=== PATIENT | male | born 1985 | race Caucasian/White ===

== ENCOUNTER → 2021-11-17 15:19 | Outpatient (CLI) | payer SELFPAY ==
[2021-11-17 15:53] LABS: Add Manual Diff / Slide Review NO; Basophils Absolute Auto 0 /uL (0-100); Basophils Percent Auto 0.7 % (0-2); Eosinophils Absolute Auto 100 /uL (0-450); Eosinophils Percent Auto 1.6 % (2-4); Hematocrit 42.4 % (41-53); Hemoglobin 14.7 g/dL (13.5-17.5); Lymphocytes Absolute Auto 1100 /uL (1100-4500); Lymphocytes Percent Auto 16.6 % (25-40); Mean Corpuscular HGB Conc 34.8 % (30-36); Mean Corpuscular Hemoglobin 32.3 PG (26-34); Mean Corpuscular Volume 92.8 fL (80-100); Monocytes Absolute Auto 500 /uL (0-900); Monocytes Percent Auto 7.4 % (3-14); Neutrophils Absolute Auto 4900 /uL (1500-7000); Neutrophils Percent Auto 73.7 % (50-75); Platelet Count 211 X10^3/uL (150-400); Red Blood Cell Count 4.56 X10^6/uL (4.5-5.9); Red Cell Distribution Width 13.4 % (11.6-14.8); White Blood Cell Count 6.6 X10^3/uL (4.5-11.0)
[2021-11-17 16:50] LABS: Alanine Aminotransferase 39 IU/L (<50); Albumin 4.6 g/dL (3.5-5.0); Albumin Globulin Ratio 1.6 (1.0-2.8); Alkaline Phosphatase 50 U/L (38-126); Aspartate Aminotransferase 53 IU/L (17-59); Bilirubin Total 0.3 mg/dL (0.2-1.3); Blood Urea Nitrogen 30 mg/dL (9-20); Calcium 9.6 mg/dL (8.4-10.2); Carbon Dioxide 30 mmol/L (22-32); Chloride 105 mmol/L (98-107); Cholesterol 191 mg/dL (140-199); Globulin 2.8 g/dL (1.7-4.1); Glucose 96 mg/dL (70-100); HDL Cholesterol 86 mg/dL (40-60); LDL Cholesterol Calculated 82 mg/dL (<100); Potassium 4.6 mmol/L (3.4-5.1); Sodium 140 mmol/L (137-145); Total Protein 7.4 g/dL (6.3-8.2); Triglycerides 116 mg/dL (35-150)
[2021-11-17 17:02] LABS: Free T3, Triiodothyronine Free 3.94 pg/mL (2.77-5.27); Free T4, Direct Thyroxine 0.87 ng/dL (0.78-2.19)
[2021-11-17 17:13] LABS: BUN Creatinine Ratio 20.7 (6-22); Estimated Glomerular Filt Rate 55.4 mL/min (>60); HEMOLYSIS 28 (0-50)
[2021-11-17 17:16] LABS: Thyroid Stimulating Hormone 1.86 uIU/mL (0.47-4.68)
[2021-11-17 17:22] LABS: Hepatitis B Surface Antigen NEGATIVE s/c (NEGATIVE)
[2021-11-17 17:38] LABS: HIV 1 & 2 Ab/Ag 4th Gen Combo NEGATIVE (NEGATIVE); Hep C Virus Ab w/Reflex Quant NEGATIVE s/c (NEGATIVE)
[2021-11-17 17:49] LABS: Urine N gonorrhoeae NOT DETECTED
[2021-11-17 17:51] LABS: Urine Chlamydia NOT DETECTED
[2021-11-18 08:17] LABS: RPR Screen Non Reactive (Non Reactive)
== END ==
PROVIDERS: Family Provider Physician Assistant; PCP Family Medicine; Referring Provider Family Medicine; Visit Provider Family Medicine
DX: F50.9 Eating disorder, unspecified (principal); Z11.3 Encounter for screening for infections with a predominantly sexual mode of transmission
CPT/HCPCS: 36415; 80053; 80061; 84439; 84443; 84481; 85025; 86592; 86803; 87340; 87389; 87491; 87591

== ENCOUNTER 2025-02-19 20:37 | Emergency (ER) | payer OTHER, SELFPAY ==
[2025-02-19 20:46] VITALS: BP 127/65; PULSE 94; RESP 18; TEMP 36.8; O2SAT 98; BMI 25.0
--- NOTE | 2025-02-19 20:53 | DI.RAD.S_ITS ---
PROCEDURE: XR FOOT LT MIN 3V INDICATIONS: stepped on glass, swelling pain TECHNIQUE: 3 views of the foot were acquired. COMPARISON: None. FINDINGS: Bones: No fractures or dislocations. No suspicious bony lesions. Soft tissues: No tibiotalar joint effusion. Achilles tendon appears normal. No radiopaque foreign body. IMPRESSION: No radiopaque foreign body. Dictated by: Reuben Figueredo M.D. on 02/19/2025 at 21:26 Approved by: Reuben Figueredo M.D. on 02/19/2025 at 21:26
[2025-02-19 22:43] VITALS: BP 107/67; PULSE 59; RESP 16; O2SAT 98
--- NOTE | 2025-02-19 22:45 | ED_ITS ---
HPI - Extremity Injury (Lower) General Chief Complaint: Extremity Injury, Lower Stated Complaint: possible glass in lt foot Time Seen by Provider: 02/19/25 22:45 Source: patient Mode of arrival: Ambulatory History of Present Illness HPI Narrative: 39-year-old male n past medical history of substance abuse, alcohol abuse, bipolar, comes into the ED from evaluation of possible glass and foot. He states that yesterday he stepped on a water bottle with his left foot states that he did pull out some glass yesterday states it is now swollen and painful unsure of tetanus vaccine status, he denies any other injuries or symptoms at this time. Related Data Home Medications Medication Instructions Recorded Confirmed lisdexamfetamine 50 mg capsule 50 mg PO QAM 08/29/24 08/29/24 (Vyvanse) Previous Rx's Medication Instructions Recorded finasteride 1 mg tablet 1 mg PO DAILY #90 tabs 01/26/22 trazodone 50 mg tablet 50 mg PO ONCE PM PRN for insomnia 02/07/24 #30 tabs naltrexone 50 mg tablet See Rx Instructions .Route 08/29/24 .COMPLEX #30 tabs sulfamethoxazole 800 1 tab PO BID 1 week #14 tabs 02/19/25 mg-trimethoprim 160 mg tablet (Bactrim DS) Allergies Allergy/AdvReac Type Severity Reaction Status Date / Time No Known Drug Allergies Allergy Verified 01/26/24 10:40 Review of Systems Review of Systems Narrative: General: Denies fever, chills, weight loss HEENT: Denies headache, eye drainage, eye irritation, head trauma, sore throat, voice change Cardiovascular: Denies any chest pain, palpitations, tachycardia Respiratory: Denies any shortness of breath, cough, wheeze, stridor GI/: Denies any abdominal pain, nausea, vomiting, diarrhea, bright red blood per rectum, melanotic stools, urinary frequency, urinary retention, dysuria, hematuria MSK: Positive left foot pain swollen Skin: Denies any rashes, lesions, discoloration Neuro: Denies any headache, lightheadedness, dizziness, fainting, weakness Psych: Denies SI/HI Patient History Medical History (Updated 02/19/25 @ 22:55 by Dante Corrigan DO) Unspecified mood [affective] disorder Anxiety disorder, unspecified Alcohol use disorder, severe, dependence Fracture of right forearm Insomnia Substance abuse Alcoholism Bipolar disorder Eating disorder Exam Narrative Exam Narrative: General: Cooperative, well-developed, not in acute distress HEENT: Normocephalic, atraumatic, PERRLA, normal sclera, eyelids normal Neck: Active full range of motion, atraumatic Chest: Normal to inspection, negative crepitus, no overlying erythema ecchymosis Respiratory: Normal respiratory effort, not in acute respiratory distress, clear to auscultation bilaterally negative cough, wheeze, tachypnea, rhonchi, rales Cardiology: Regular rate rhythm negative gallop, murmur, rubs GI/: No tenderness to palpation, soft, non rigid, normal to inspection, exam deferred MSK: Full active range of motion in all 4 extremities, atraumatic, no tenderness to palpation of any bony prominences Skin: There is a 1 cm laceration noted to the plantar aspect of the left foot, no foreign body noted, not actively bleeding, no streaking no abscess Neuro: Alert awake oriented x3, moves all 4 extremities spontaneously, cranial nerves intact, able to answer all questions appropriately follows commands appropriately Psych: Cooperative, negative suicidal or homicidal ideations Initial Vital Signs Initial Vital Signs: Vital Signs Temperature 98.2 F 02/19/25 20:46 Pulse Rate 94 H 02/19/25 20:46 Respiratory Rate 18 02/19/25 20:46 Blood Pressure 127/65 02/19/25 20:46 Pulse Oximetry 98 02/19/25 20:46 Oxygen Delivery Method Room Air 02/19/25 20:46 Course Orders Ordered: ED Orders 02/19/25 20:53 XR foot LT min 3V Stat Vital Signs Vital signs: Vital Signs - 8 hr 02/19/25 20:46 Temperature 98.2 F Pulse Rate 94 H Respiratory Rate 18 Blood Pressure 127/65 Pulse Oximetry 98 Oxygen Delivery Method Room Air MDM - Extremity Injury (Lower) Differential Diagnosis Differential diagnosis: Likely other (Foreign body, cellulitis, abscess) Imaging Data Extremity x-ray #1: Radiologist's Impression: [address] [id number] XRay Report Signed Patient: Oh Samano MR#: [id number] : 1985 Acct:[id number] Age/Sex: 39 / M Date of Service: 02/19/25 Loc: ED Accession Number: [id number] Procedure: XR foot LT min 3V Ordering Provider: Dante Corrigan D.O. PROCEDURE: XR FOOT LT MIN 3V INDICATIONS: stepped on glass, swelling pain TECHNIQUE: 3 views of the foot were acquired. COMPARISON: None. FINDINGS: Bones: No fractures or dislocations. No suspicious bony lesions. Soft tissues: No tibiotalar joint effusion. Achilles tendon appears normal. No radiopaque foreign body. IMPRESSION: No radiopaque foreign body. MDM Narrative Medical decision making narrative: 39-year-old male history of substance abuse, alcohol abuse, bipolar, presents for laceration and possible foreign bodies his left foot, he states that yesterday he stepped on a wine glass, states that it is shattered under his foot did pull out a piece of glass, he states that he has had persistent pain and swelling and is worried that he might have some remaining glass in his foot, x- ray does not show any radiopaque foreign bodies, on exam 1 cm laceration of the plantar aspect of the foot, not actively bleeding given laceration greater than 12 hours no indication for primary closure. Patient unsure of tetanus vaccination therefore will update here, given the laceration happened to the plantar aspect of the foot will provide antibiotics for prophylaxis, left lower extremity is neurovascularly intact patient was given strict return precautions verbalized understanding of this and agrees to being discharged home with outpatient follow up Discharge Plan Departure Patient Disposition: Home Clinical Impression: Laceration of foot, left Activity Restrictions/Additional Instructions: Please follow up with the primary care doctor Please read the discharge instructions sheet carefully and bring all papers to all doctor follow-up visits, as it may contain information that your doctor may want to see. Disease processes change and evolve, if your symptoms worsen or if you develop any new symptoms that are concerning to you please return for evaluation. Your evaluation today does not show any evidence of any life- threatening/serious illnesses requiring admission to the hospital or surgery. Please follow-up with your doctor for re-evaluation in approximately 1 day. Seek immediate medical attention for any worrisome symptoms. *If you do not have a primary care provider please contact the [facility] Resource line at [phone]. They will ask some questions about your medical history and help get you set up with a doctor in the community. Prescriptions: New sulfamethoxazole-trimethoprim [Bactrim DS] 800-160 mg tablet 1 tab PO BID 7 Days Qty: 14 0RF No Action finasteride 1 mg tablet 1 mg PO DAILY Qty: 90 0RF lisdexamfetamine [Vyvanse] 50 mg capsule 50 mg PO QAM naltrexone 50 mg tablet See Rx Instructions .ROUTE .COMPLEX Qty: 30 2RF Rx Instructions: Take half a tablet by mouth at bedtime for four nights, then increase to full tablet at bedtime thereafter; trazodone 50 mg tablet 50 mg PO ONCE PM PRN (Reason: for insomnia) Qty: 30 0RF Referrals: Tara Block MD [Primary Care Provider] - Stand Alone Forms: Patient Portal/API/Survey
[2025-02-19] MEDS: TRIMETH/SULFA 160/800 (DS) TABLET 1 TAB PO (23:05)
[2025-02-19] MEDS: TET,DIPH,PERTUSS(ACELL),VAC/PF 0.5 ML SYRINGE IM (23:05)
== END 2025-02-19 23:12 | disposition home or self-care (01) ==
PROVIDERS: Emergency Provider Student in an Organized Health Care Education/Training Program; Family Provider Physician Assistant; PCP Family Medicine
DX: S91.312A Laceration without foreign body, left foot, initial encounter (principal); W25.XXXA Contact with sharp glass, initial encounter; Z23 Encounter for immunization
CPT/HCPCS: 73630; 90471; 99283; 90715